=== PATIENT | female | born 1975 | race Caucasian/White ===

== ENCOUNTER 2023-08-22 13:56 | Inpatient (IN) | payer SELFPAY ==
[2023-08-22 14:31] VITALS: BMI 29.1
[2023-08-22] MEDS ORDERED: Ondansetron PF 4 MG/2 ML Vial IVP PRN (15:07)
[2023-08-22] MEDS ORDERED: Lactated Ringer's 1,000 ML IV SCH (15:30)
[2023-08-22] MEDS: Cefepime 1 GM in Sodium Chloride 0.9% 100 ML IVPB SCH (16:09)
[2023-08-22] MEDS ORDERED: Ondansetron PF 4 MG/2 ML Vial ONE (16:32)
[2023-08-22] MEDS ORDERED: Lidocaine 1% PF 5 ML VIAL ONE (16:32)
[2023-08-22] MEDS ORDERED: fentaNYL PF 100 MCG/2 ML SYRINGE ONE (16:32)
[2023-08-22] MEDS ORDERED: PROPOFOL 40 ML ONE (16:32)
[2023-08-22] MEDS ORDERED: Dexamethasone 4 mg/ml Vial ONE (16:32)
[2023-08-22] MEDS ORDERED: Dexmedetomidine 200 MCG/2 ML VIAL ONE (16:33)
[2023-08-22] MEDS ORDERED: Iopamidol 15 ML ONE (16:45)
[2023-08-22] MEDS ORDERED: Midazolam HCl 2 mg/2 ml Vial ONE (16:50)
[2023-08-22] MEDS ORDERED: PHENYLEPHRINE-NS 100 MCG/ML 10 ML SYRINGE ONE (17:08)
[2023-08-22] MEDS ORDERED: Mag-Al 1200 mg/1200 mg/30 ML UDCUP PO PRN (17:33)
[2023-08-22] MEDS ORDERED: Oxybutynin 5 MG TAB PO PRN (17:33)
[2023-08-22] MEDS: Sodium Chloride 0.9% 1,000 ML IV SCH (17:52)
[2023-08-22 19:20] LABS: HBCM Index 0.16 S/CO (0-0.79); HBSAg Index 0.23 S/CO (0-0.99); Hep A IgM AB Non-Reactive S/CO (NonReactive); Hep A IgM S/CO 0.13 S/CO (0-0.79); Hep B Surf Ag Non-Reactive S/CO (NonReactive); Hep C IgG Ab Non-Reactive S/CO (NonReactive); Hep C Index 0.08 S/CO (0-0.79); Hepatitis B Core IgM Abs Non-Reactive S/CO (NonReactive)
[2023-08-22] MEDS: Phenazopyridine HCl 100 MG TAB PO SCH (20:25)
[2023-08-22] MEDS: Docusate 100 MG CAP PO SCH (20:25)
[2023-08-22] MEDS: Famotidine/PF 20 mg/2ml Vial SLOW IVP SCH (20:25)
[2023-08-23 06:08] LABS: #Monocytes 0.9 thou/uL (0.11-0.59); %Basophils 0.3 % (0.0-1.0); %Eosinophils 0.1 % (0.0-10.0); %Lymphocytes 10.7 % (21.0-51.0); %Monocytes 6.4 % (0.0-10.0); %Neutrophils 82.1 % (42.0-75.0); Hematocrit 39.6 % (36.0-47.0); Hemoglobin 12.7 g/dL (12.0-16.0); Mean Corpuscular HGB CONC 32.1 g/dL (32.0-36.0); Mean Corpuscular Hemoglobin 30.9 pg (27.0-31.0); Mean Corpuscular Volume 96.4 fl (78.0-98.0); Platelet Count 384 10x3/uL (130-400); RBC Distribution Width 13.5 % (11.5-14.5); Red Blood Cell (RBC) Count 4.11 mill/uL (4.20-5.40); White Blood Cell (WBC) Count 13.4 10x3/uL (4.8-10.8)
[2023-08-23 06:35] LABS: Anion Gap 10 mmol/L (10-20); BUN (Urea Nitrogen) 12 mg/dL (7.0-18.7); Calc. Creatinine Clearance 99 mL/min (70-130); Calcium 8.8 mg/dL (7.8-10.44); Carbon Dioxide 25 mmol/L (22-29); Chloride 107 mmol/L (98-107); Estimated GFR 85; Glucose 132 mg/dL (70-105); Potassium 4.4 mmol/L (3.5-5.1); Sodium 138 mmol/L (136-145)
[2023-08-23 06:56] LABS: HIV (1/2) Antibody/Antigen Non-Reactive (NonReactive); HIV 1/2 INDEX 0.27 S/CO (<1.00)
[2023-08-23] MEDS: Polyethylene Glycol 3350 17 GM Packet PO SCH (09:01)
[2023-08-23] MEDS: Nicotine 21 MG PATCH TD SCH (09:01)
[2023-08-23] MEDS: FLU VACC QS2023-24(6MOS UP)/PF 60 MCG/0.5 ML SYRINGE IM ONE (09:03)
[2023-08-23 11:03] LABS: Syphilis Antibody Nonreactive (Nonreactive)
[2023-08-23] MEDS: Ketorolac Tromethamine 30 MG (1 mL) VIAL IVP PRN (13:25)
[2023-08-23] MEDS: Cefepime 2 GM in Sodium Chloride 0.9% 100 ML IVPB SCH (15:11)
[2023-08-23] MEDS: Nicotine 21 MG PATCH TOP SCH (15:12)
[2023-08-23] MEDS ORDERED: Ipratropium/Albuterol 3 ML NEB NEB PRN (21:41)
[2023-08-23] MEDS: Ketorolac Tromethamine 30 MG (1 mL) VIAL IVP SCH (21:56)
[2023-08-23] MEDS: Ipratropium/Albuterol 3 ML NEB NEB SCH (22:22)
[2023-08-24 05:56] LABS: #Basophils 0.1 thou/uL (0.0-0.2); #Eosinphils 0.3 thou/uL (0.0-0.7); #Neutrophils 5.9 thou/uL (1.40-6.50); %Basophils 0.8 % (0.0-1.0); %Eosinophils 2.3 % (0.0-10.0); %Lymphocytes 35.2 % (21.0-51.0); %Monocytes 9.2 % (0.0-10.0); %Neutrophils 52.3 % (42.0-75.0); Hematocrit 38.9 % (36.0-47.0); Hemoglobin 12.2 g/dL (12.0-16.0); Mean Corpuscular HGB CONC 31.4 g/dL (32.0-36.0); Mean Corpuscular Hemoglobin 31.1 pg (27.0-31.0); Mean Corpuscular Volume 99.2 fl (78.0-98.0); Platelet Count 337 10x3/uL (130-400); RBC Distribution Width 13.7 % (11.5-14.5); Red Blood Cell (RBC) Count 3.92 mill/uL (4.20-5.40); White Blood Cell (WBC) Count 11.3 10x3/uL (4.8-10.8)
[2023-08-24 06:21] LABS: Anion Gap 4 mmol/L (10-20); BUN (Urea Nitrogen) 20 mg/dL (7.0-18.7); Calc. Creatinine Clearance 80 mL/min (70-130); Calcium 8.1 mg/dL (7.8-10.44); Carbon Dioxide 30 mmol/L (22-29); Chloride 106 mmol/L (98-107); Estimated GFR 66; Glucose 96 mg/dL (70-105); Potassium 4.2 mmol/L (3.5-5.1); Sodium 136 mmol/L (136-145)
[2023-08-24 10:44] LABS: RBC/HPF Greater than 50 HPF (0-3); Squamous Epithelial 0-3 HPF (0-3); WBC/HPF 21-50 HPF (0-3)
[2023-08-24 10:46] LABS: Bacteria/HPF 1+ HPF (None Seen)
[2023-08-24 10:47] LABS: Unclassified Crystals None Seen HPF (None Seen)
[2023-08-25 04:28] LABS: #Basophils 0.1 thou/uL (0.0-0.2); #Eosinphils 0.4 thou/uL (0.0-0.7); #Monocytes 0.9 thou/uL (0.11-0.59); #Neutrophils 4.4 thou/uL (1.40-6.50); %Basophils 0.9 % (0.0-1.0); %Eosinophils 4.3 % (0.0-10.0); %Lymphocytes 37.5 % (21.0-51.0); %Monocytes 9.5 % (0.0-10.0); %Neutrophils 47.6 % (42.0-75.0); Hematocrit 39.4 % (36.0-47.0); Hemoglobin 12.4 g/dL (12.0-16.0); Mean Corpuscular HGB CONC 31.5 g/dL (32.0-36.0); Mean Corpuscular Hemoglobin 30.8 pg (27.0-31.0); Mean Corpuscular Volume 97.8 fl (78.0-98.0); Mean Platelet Volume 9.2 fL (7.4-10.4); Platelet Count 345 10x3/uL (130-400); RBC Distribution Width 13.4 % (11.5-14.5); Red Blood Cell (RBC) Count 4.03 mill/uL (4.20-5.40); White Blood Cell (WBC) Count 9.3 10x3/uL (4.8-10.8)
[2023-08-25 04:54] LABS: Anion Gap 10 mmol/L (10-20); BUN (Urea Nitrogen) 18 mg/dL (7.0-18.7); Calc. Creatinine Clearance 96 mL/min (70-130); Calcium 8.3 mg/dL (7.8-10.44); Carbon Dioxide 24 mmol/L (22-29); Chloride 108 mmol/L (98-107); Estimated GFR 83; Glucose 90 mg/dL (70-105); Potassium 4.2 mmol/L (3.5-5.1); Sodium 138 mmol/L (136-145)
[2023-08-25 12:27] VITALS: BP 114/76
[2023-08-25 16:42] VITALS: TEMP 97.8
== END 2023-08-25 16:32 | disposition home or self-care (01) | DRG 660 ==
LOC: T4-B 13:56 → OBSVTOIN 15:07
PROVIDERS: ADMIT Internal Medicine; ATTEND Internal Medicine
PROC: 0T778DZ Dilation of Left Ureter with Intraluminal Device, Via Natural or Artificial Opening Endoscopic (ICD-10-PCS; principal; 2023-08-22)
DX: N13.2 Hydronephrosis with renal and ureteral calculous obstruction (principal); Z59.00 Homelessness unspecified; F15.10 Other stimulant abuse, uncomplicated; N17.9 Acute kidney failure, unspecified; Z79.899 Other long term (current) drug therapy; F17.210 Nicotine dependence, cigarettes, uncomplicated
CPT/HCPCS: 36415; 74420; 80048; 80074; 81015; 85025; 86780; 87086; 87389; 94640; C2617; J0692; J1100; J1885; J2250; J2405; J2704; J3490; J7050; J7620; Q9967; S0028

== ENCOUNTER 2023-08-30 09:48 | Day surgery (SDC) | payer SELFPAY ==
[2023-08-29 10:14] VITALS: BMI 27.4
[2023-08-30] MEDS ORDERED: PROPOFOL 20 ML ONE (13:32)
[2023-08-30] MEDS ORDERED: Lidocaine 2% PF 5 ML VIAL ONE (13:32)
[2023-08-30] MEDS ORDERED: fentaNYL PF 100 MCG/2 ML SYRINGE ONE (13:32)
[2023-08-30] MEDS ORDERED: Rocuronium Bromide 10 MG/ML (10ML VIAL) ONE (13:32)
[2023-08-30] MEDS ORDERED: Ondansetron PF 4 MG/2 ML Vial ONE (13:34)
[2023-08-30] MEDS ORDERED: Dexamethasone 4 mg/ml Vial ONE (13:34)
[2023-08-30] MEDS ORDERED: SUGAMMADEX SODIUM 200 MG/2 ML VIAL ONE (13:36)
[2023-08-30] MEDS ORDERED: LevoFLOXacin D5W 500 mg (100 mL) BAG ONE (13:53)
[2023-08-30] MEDS ORDERED: Iopamidol 30 ML ONE (14:20)
[2023-08-30] MEDS ORDERED: Ketorolac Tromethamine 30 MG (1 mL) VIAL ONE (15:09)
[2023-08-30] MEDS ORDERED: Phenazopyridine HCl 100 MG TAB ONE (15:35)
[2023-08-30] MEDS ORDERED: Oxybutynin 5 MG TAB ONE (15:35)
== END 2023-08-30 16:30 | disposition home or self-care (01) ==
LOC: SDC 09:48
PROVIDERS: ATTEND Urology
PROC: 0TF78ZZ Fragmentation in Left Ureter, Via Natural or Artificial Opening Endoscopic (ICD-10-PCS; principal; 2023-08-30)
PROC: 0T778DZ Dilation of Left Ureter with Intraluminal Device, Via Natural or Artificial Opening Endoscopic (ICD-10-PCS; principal; 2023-08-30)
DX: N13.2 Hydronephrosis with renal and ureteral calculous obstruction (principal); F17.210 Nicotine dependence, cigarettes, uncomplicated
CPT/HCPCS: 74018; 74420; 82365; 88300; C1769; C2617; J1100; J1885; J1956; J2001; J2405; J2704; Q9967

== ENCOUNTER 2024-08-02 22:15 | Inpatient (IN) | payer OTHER ==
[2024-08-03] MEDS ORDERED: Dextrose 50% Abboject 50 ML SYRINGE SLOW IVP PRN (01:17)
[2024-08-03] MEDS ORDERED: Ondansetron PF 4 MG/2 ML Vial IVP PRN (01:17)
[2024-08-03] MEDS ORDERED: Dextrose 5% in Water 1,000 ML IV PRN (01:17)
[2024-08-03] MEDS ORDERED: Glucagon 1 MG/ML KIT IM PRN (01:17)
[2024-08-03 01:41] VITALS: BMI 26.9
[2024-08-03] MEDS: Sodium Chloride 0.9% 1,000 ML IV SCH (01:53)
[2024-08-03] MEDS: Piperacillin/Tazobactam 3.375 GM in Sodium Chloride 0.9% 100 ML IVPB SCH (01:54)
[2024-08-03] MEDS: Melatonin 3 MG TAB PO SCH (03:52)
[2024-08-03 05:11] LABS: #Basophils 0.11 10x3/uL (0.0-0.2); %Eosinophils 6.2 % (0.0-10.0); %Lymphocytes 32.8 % (21.0-51.0); %Monocytes 10.8 % (0.0-10.0); %Neutrophils 48.5 % (42.0-75.0); Hematocrit 39.5 % (36.0-47.0); Hemoglobin 12.7 g/dL (12.0-16.0); Mean Corpuscular HGB CONC 32.2 g/dL (32.0-36.0); Mean Corpuscular Hemoglobin 31.4 pg (27.0-31.0); Mean Corpuscular Volume 97.5 fL (78.0-98.0); Mean Platelet Volume 9.1 fL (7.4-10.4); Platelet Count 389 10x3/uL (130-400); RBC Distribution Width 13.6 % (11.5-14.5); Red Blood Cell (RBC) Count 4.05 mill/uL (4.20-5.40)
[2024-08-03 05:25] LABS: Anion Gap 11 mmol/L (10-20); BUN (Urea Nitrogen) 15 mg/dL (7.0-18.7); Calc. Creatinine Clearance 83 mL/min (70-130); Calcium 8.6 mg/dL (7.8-10.44); Carbon Dioxide 26 mmol/L (22-29); Chloride 106 mmol/L (98-107); Estimated GFR 77; Glucose 96 mg/dL (70-105); Potassium 4.1 mmol/L (3.5-5.1); Sodium 139 mmol/L (136-145)
[2024-08-03 08:10] VITALS: BP 98/64; TEMP 97.4
[2024-08-06] MEDS ORDERED: FLU (Fluarix Triv) TS24-25(6MOS UP)/PF 45 MCG/0.5 ML Syringe IM ONE (09:00)
== END 2024-08-03 11:44 | disposition home or self-care (01) | DRG 392 ==
LOC: SURG A 22:15 → UNDOADMIN 22:15 → SURG A 08-03 01:17
PROVIDERS: ADMIT Specialist; ATTEND Specialist
DX: K44.9 Diaphragmatic hernia without obstruction or gangrene (principal); Z59.00 Homelessness unspecified; I10 Essential (primary) hypertension; Z98.890 Other specified postprocedural states; Z88.8 Allergy status to other drugs, medicaments and biological substances; Z79.899 Other long term (current) drug therapy
CPT/HCPCS: 36415; 80048; 85025; J2543; J7030